=== PATIENT | male | born 1995 | race Caucasian/White ===

== ENCOUNTER 2021-11-03 07:49 | Day surgery (SDC) | payer OTHER ==
[2021-11-03] VITALS (177 sets, daily range): BP systolic 68–126; BP diastolic 44–75
--- NOTE | 2021-11-03 08:15 | NUR ---
PATIENT AMBULATORY TO ROOM. PATIENT IS ALERT AND ORIENTED X3. CONSENTS OBTAINED. VITAL SIGNS OBTAINED. DR WEEKS NOTIFIED. NEW ORDERS RECEIVED. ADMISSION ASSESSMENT COMPLETED AT THIS TIME. IV ESTABLISHED. LABS SENT FOR REFERENCE. ORIENTED ROSANNA TO ROOM AND UNIT. CALL LIGHT IN REACH. WILL CONTINUE TO MONITOR.
[2021-11-03 09:13] LABS: HEMATOCRIT 32.2 % (39.0-50.0); HEMOGLOBIN 10.5 g/dl (14.0-18.0); IMMATURE GRANULOCYTES 0.2 % (0.0-5.0); MEAN CELL VOLUME 86.8 fL CALC (80.0-100.0); MEAN CORPUSCULAR HGB 28.3 pG CALC (26.0-32.0); MEAN CORPUSCULAR HGB CONC 32.6 g/dL CAL (32.0-36.0); NEUT# 2.75 thou/uL (1.82-7.42); RED BLOOD COUNT 3.71 mill/uL (4.70-6.10); RED CELL DISTRI WIDTH 12.9 % (11.5-15.5)
[2021-11-03 09:35] LABS: ALBUMIN 3.8 g/dL (3.2-5.0); ALKALINE PHOSPHATASE 60 u/l (38-126); ANION GAP 10 (6-22 (CALC)); BILIRUBIN, TOTAL 0.3 mg/dL (0.0-1.4); BUN 9 mg/dL (9-20); BUN/CREATININE RATIO 12 (12-20 (CALC)); CARBON DIOXIDE 31 mmol/l (22-30); CHLORIDE 102 mmol/l (95-108); CREATININE 0.8 mg/dL (0.7-1.3); GFR > 60 ML/MIN (>=60 (CALC)); GFR FOR AFR.AMER. > 60 ML/MIN (>=60 (CALC)); POTASSIUM 4.3 mmol/l (3.5-5.1); SGOT/AST 28 u/l (17-59); SODIUM 139 mmol/l (137-146)
--- NOTE | 2021-11-03 10:30 | NUR ---
DR WEEKS AT BEDSIDE AT THIS TIME.
--- NOTE | 2021-11-03 11:50 | NUR ---
Induction Note Patient to [facility] procedure room. Time out performed at 1150. Patient placed on monitors, Sheridan hugger, bilateral wrist restraints applied for ET tube protection. Versed 5mg given IV push at 1151 Tourniquet applied to right arm arm Lidocaine 100mg given at 1152 IV push followed by Rocoronium 10mg at 1153 IV push and held for 90 seconds. Propofol bolus of 110 mg given at 1154 IV push. Succinylcholine 80mg given IV push at 1155. Smooth intubation with 7.5 ETT. Positive CO2. Positive Auscultation for air exchange. Patient placed on ventilator for spontaneous ventilation. Placed on Propofol IV drip at 1157. OG inserted. Positive air on auscultation. Positive gastric content. Stomach washed at this time. Naltrexone 75mg given via OG tube. OG clamped at 1210 for 45 minutes. Will monitor patient for symptoms of withdrawal and adjust propfol accordingly.
--- NOTE | 2021-11-03 12:55 | NUR ---
OG open note OG open at this time. Gastric content draining into drainage bag. OG to drain for 45 minutes. Propofol will be titrated down based on patient.
--- NOTE | 2021-11-03 13:45 | NUR ---
OG close note Stomach washed at this time. Naltrexone 50 mg . OG will be clamped for 45 minutes.
--- NOTE | 2021-11-03 15:45 | NUR ---
OG close note Stomach washed at this time. Naltrexone 25 mg with Clonidine 0.3 mg via OG tube. OG will be clamped for 45 minutes.
--- NOTE | 2021-11-03 17:05 | NUR ---
OG close note Stomach washed at this time. Naltrexone 25 mg with Clonidine 0.2 mg via OG tube. OG will be clamped and prepare for extubation.
--- NOTE | 2021-11-03 17:35 | NUR ---
Extubation note Closing medications given Benadryl 50mg IV push, Decadron 10mg IV push,Magnesium 4 grams IV, Zofran 8mg IV push, Octreotide 100mcg SC. Stomach washed out prior to extubation. Suctioned gastric content. OG removed. Patient extubated. Propofol Discontinued. Wrist restraints removed. Sheridan hugger Removed. See ANR Moderate sedate recovery record for further notes and assessment.
--- NOTE | 2021-11-03 17:58 | NUR ---
patient to [facility] via bed.
--- NOTE | 2021-11-03 18:00 | NUR ---
PT ARRIVED TO FLOOR VIA BED. NO APPARENT DISTRESS NOTED. VSS. CALL LIGHT WITHIN REACH. WILL CONTINUE TO MONITOR.
--- NOTE | 2021-11-03 19:30 | NUR ---
PT RESTING IN BED, NO SIGNS OF DISTRESS NOTED, RESP EVEN AND UNLABORED. PT ASSISTED TO BATHROOM, VOIDED WITHOUT DIFFICULTY. AMBULATED WITH STEADY GAIT BACK TO BED, PT TOLERATED PO FLUIDS WELL. SKIN INTACT, IVF INFUSING TO RH. VOICES NO NEEDS AT THIS TIME, ASSESSMENT REVIEW COMPLETED, CALL LIGHT IN REACH,CONTINUE TO MONITOR.
--- NOTE | 2021-11-03 22:38 | NUR ---
PT RESTING IN BED, MEDICATED PER MAR, NO SIGNS OF DISTRESS NOTED, RESP EVEN AND UNLABORED. VOICES NO NEEDS OR COMPLAINTS AT THIS TIME, BED ALARM FOR SAFETY, CALL LIGHT IN REACH,CONTINUE TO MONITOR.
[2021-11-04 03:38] VITALS: BP 103/61
--- NOTE | 2021-11-04 04:00 | NUR ---
PT MEDICATED PER MAR, ASSISTED TO BATHROOM THEN BACK TO BED, NO SIGNS OF DISTRESS NOTED, RESP EVEN AND UNLABORED. PT VOICES NO NEEDS OR COMPLAINTS AT THIS TIME, CALL LIGHT IN REACH,CONTINUE TO MONITOR.
[2021-11-04 05:16] LABS: HEMATOCRIT 30.2 % (39.0-50.0); HEMOGLOBIN 9.8 g/dl (14.0-18.0); IMMATURE GRANULOCYTES 0.2 % (0.0-5.0); MEAN CORPUSCULAR HGB 28.2 pG CALC (26.0-32.0); MEAN CORPUSCULAR HGB CONC 32.5 g/dL CAL (32.0-36.0); NEUT# 3.96 thou/uL (1.82-7.42); RED BLOOD COUNT 3.47 mill/uL (4.70-6.10); RED CELL DISTRI WIDTH 12.9 % (11.5-15.5)
[2021-11-04 05:39] LABS: ALBUMIN 3.4 g/dL (3.2-5.0); ALKALINE PHOSPHATASE 60 u/l (38-126); ANION GAP 11 (6-22 (CALC)); BILIRUBIN, TOTAL 0.2 mg/dL (0.0-1.4); BUN 10 mg/dL (9-20); BUN/CREATININE RATIO 17 (12-20 (CALC)); CARBON DIOXIDE 26 mmol/l (22-30); CHLORIDE 107 mmol/l (95-108); CREATININE 0.6 mg/dL (0.7-1.3); GFR > 60 ML/MIN (>=60 (CALC)); GFR FOR AFR.AMER. > 60 ML/MIN (>=60 (CALC)); MAGNESIUM 2.2 mg/dL (1.6-2.3); POTASSIUM 4.4 mmol/l (3.5-5.1); SGOT/AST 23 u/l (17-59); SODIUM 140 mmol/l (137-146); TOTAL PROTEIN 5.5 g/dL (6.3-8.2)
[2021-11-04 06:39] VITALS: BP 93/39
--- NOTE | 2021-11-04 06:50 | NUR ---
RECIEVED REPORT FROM EITAN HURTADO
--- NOTE | 2021-11-04 07:54 | NUR ---
PT RESTING IN LOW FOWLERS POSITION. PT IS A/OX3 BUT STILL DROWSY. ASSESSMENT AND VITALS COMPLETED. RESPIRATIONS EVEN AND UNLABORED. LUNG SOUNDS CLEAR. HEART RHYTHM NORMAL. BOWEL SOUNDS ACTIVE. #18G LFA, #18G RH AND #20G RAC FLUSHED, SITES PATENT. PT ABLE TO TOLERATED MORNING MEDICATIONS, CLONODINE HELD DUE TO LOW BP. PT DENIES OF ANY ADDITIONAL NEEDS. ALL SAFTEY PRECAUTIONS ARE IN PLACE WITH CALL LIGHT IN REACH. BED ALARM ACTIVE.
--- NOTE | 2021-11-04 11:16 | NUR ---
PT SLEEPING IN SEMI FOWLERS POSITION. RESPIRATIONS ARE EVEN AND UNLABORED ON ROOM AIR. IV SITES REMAINS. PT HAS BEEN UP AMBULATING TO BATHROOM WITH STANDBY ASSIST. NO SIGNS OF ANY NEEDS. ALL SAFTEY PRECAUTIONS ARE IN PLACE WITH CALL LIGHT IN REACH.
--- NOTE | 2021-11-04 12:33 | NUR ---
PT TOLERATED LUNCH WELL. PT SHOWERED AND RESTING BACK IN BED. PT APPEARS MORE ALERT WATCHING TV. PT DENIES OF ANY NEEDS AT THIS TIME. PT INFORMED OF POC. PT VERBALIZED UNDERSTANDING. DENIES OF ANY ADDITIONAL NEEDS AT THSI TIME. ALL SAFTEY PRECAUTIONS ARE IN PLACE WITH CALL LIGHT IN REACH.
--- NOTE | 2021-11-04 14:11 | NUR ---
DR WEEKS AT BEDSIDE
--- NOTE | 2021-11-04 15:07 | NUR ---
PT EDUCATED ON DC INSTRUCTIONS. PT VERBLAIZED UNDERSTANDING. SCHDEULED MEDCATIONS ADMINISTERED. PT TOLERATED WELL. IV SITES REMOVED WITH CATH STILL INTACT. SAFTEY PRECAUTIONS REMAINS IN PLACE
--- NOTE | 2021-11-04 16:53 | NUR ---
Discharge instructions given. Patient verbalizes understanding of same. Discharged in stable condition via Ambulatory to Home with staff. All belongings sent with pt. PT DC HOME IN STABLE CONDITION A,BULATING WITH STEADY GAIT. ANR STAFF EMILIANO AT SIDE. ALL DC INSTRUCTIONS AND PERSONAL BELONGINGS WITH PT.
== END 2021-11-04 16:53 | disposition home or self-care (01) | DRG 897 ==
LOC: ANR 07:49 → MS2 07:51 → ANR 08:07
PROVIDERS: ATTEND Anesthesiology
DX: F11.20 Opioid dependence, uncomplicated (principal)
CPT/HCPCS: J2060; J2354